=== PATIENT | female | born 1960 | race African-American/Black ===

== ENCOUNTER 2019-06-26 12:01 | Emergency (ER) | payer OTHER ==
[~2019-06-26] VITALS: Ht 172.7 cm; Wt 104.3 kg
[2019-06-26 12:04] VITALS: BP 154/88
[2019-06-26] MEDS ORDERED: KEFLEX500 M1 PO (12:22)
[2019-06-26] MEDS ORDERED: PREDNISONE 20 M20 MG PO (12:22)
== END 2019-06-26 12:55 | disposition home or self-care (01) ==
LOC: ER 12:01
DX: L03.313 Cellulitis of chest wall (principal); I10 Essential (primary) hypertension